=== PATIENT | female | born 1990 | race Caucasian/White ===

== ENCOUNTER 2025-02-04 02:58 | Emergency (ER) | payer MEDICAID ==
[~2025-02-04] VITALS: Ht 152.4 cm; Wt 54.4 kg
[2025-02-04 03:05] VITALS: O2SAT 100
[2025-02-04 03:40] LABS: BASOPHILS % 0.2 % (0.0-2.0); EOSINOPHILS % 0.8 % (0.0-5.0); HEMATOCRIT. 37.5 % (36.0-48.0); HEMOGLOBIN. 12.8 g/dL (12.0-16.0); LYMPHOCYTES % 20.2 % (20.0-50.0); MEAN PLATELET VOLUME 7.6 fl (7.4-10.4); MONOCYTES % 5.7 % (2.0-8.0); NEUTROPHILS % 73.1 % (40.0-76.0); PLATELET 294 x1000/uL (130-400); RED BLOOD CELL COUNT 3.95 mill/uL (4.2-5.4); RED CELL DISTRIBUTION WIDTH 13.4 % (11.6-14.6)
[2025-02-04 03:52] LABS: CREATININE 0.6 mg/dL (0.6-1.0); HCG SCREEN POSITIVE; UREA NITROGEN BLOOD 11 mg/dL (9-23)
[2025-02-04 03:54] LABS: ASPARTATE AMINOTRANSFERASE 9 IU/L (<34); BILIRUBIN DIRECT 0.1 mg/dL (<=3.0)
[2025-02-04 03:55] LABS: BILIRUBIN TOTAL 0.4 mg/dL (0.1-1.0); PROTEIN TOTAL 6.9 g/dL (6.0-8.3)
[2025-02-04 04:02] LABS: CLARITY URINE CLEAR (CLEAR); COLOR URINE YELLOW (YELLOW); GLUCOSE URINE NEGATIVE (NEGATIVE); KETONES URINE TRACE (NEGATIVE); LEUKOCYTE ESTERASE URINE NEGATIVE (NEGATIVE); NITRITE URINE NEGATIVE (NEGATIVE); OCCULT BLOOD URINE NEGATIVE (NEGATIVE); PH URINE 5.5 (4.5-8.0); PROTEIN URINE NEGATIVE (NEGATIVE); SPECIFIC GRAVITY URINE 1.021 (1.005-1.030); UROBILINOGEN URINE 1.0 E.U./dL (0.2-1.0)
[2025-02-04 04:06] LABS: B-HCG QUANTITATIVE 142939 mIU/mL (<6)
[2025-02-04] MEDS: ACETAMINOPHEN 325MG TABLET PO ONE (04:12)
[2025-02-04] MEDS ORDERED: ACET-2708 MT (04:15)
[2025-02-04] MEDS: POTASSIUM CHLORIDE 20MEQ/PACKET PO SCH (04:35)
[2025-02-04 04:36] VITALS: BP 100/62; PULSE 90; RESP 12; TEMP 36.8; O2SAT 100
== END 2025-02-04 04:44 | disposition home or self-care (01) ==
LOC: ER 02:58
DX: O9A.211 Injury, poisoning and certain other consequences of external causes complicating pregnancy, first trimester (principal); O99.511 Diseases of the respiratory system complicating pregnancy, first trimester; J45.909 Unspecified asthma, uncomplicated; Z3A.09 9 weeks gestation of pregnancy; Z79.899 Other long term (current) drug therapy; Z98.890 Other specified postprocedural states
CPT/HCPCS: 80076; 80048; 81003; 84703; 84702; 85025; 86850; 86900; 86901; 36415; 76801; 99284; Z7610 ×2; A4606